=== PATIENT | male | born 2000 | race Caucasian/White ===

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

== ENCOUNTER 2021-09-24 09:04 | Emergency (ER) | payer BC, OTHER ==
[2021-09-24] MEDS ORDERED: Ondansetron 4 MG/2 ML SDV IVPUSH ONE (09:18)
[2021-09-24] MEDS ORDERED: Sodium Chloride 0.9% 10 ML Syringe FLUSH PRN (09:18)
[2021-09-24] MEDS ORDERED: Sodium Chloride 0.9% 1,000 ML IV ONE (09:18)
[2021-09-24 10:00] LABS: ANION GAP 15.6 mmol/L (5-15); CHLORIDE,CL 103 mmol/L (98-107); SODIUM,NA 138 mmol/L (136-145)
[2021-09-24] MEDS ORDERED: Ondansetron 4 MG Tab.DIS PO ONE (10:56)
== END 2021-09-24 11:05 | disposition home or self-care (01) ==
LOC: KA.ED 09:04
DX: A08.4 Viral intestinal infection, unspecified (principal)
CPT/HCPCS: 36415; 80053; 83690; 85025; 96374; 99284; 99284-25; A9270-GY; J2405; J7030